=== PATIENT | female | born 1960 | race Caucasian/White ===

== ENCOUNTER 2020-08-12 19:47 | Emergency (ER) | payer BC, OTHER ==
--- NOTE | 2020-08-12 19:59 | EDM.PDOC ---
ED HPI GENERAL MEDICAL PROBLEM - General Chief Complaint: Allergic Reaction Time Seen by Provider: 08/12/20 19:51 Source of Information: Reports: Patient, EMS History Limitations: Reports: No Limitations - History of Present Illness INITIAL COMMENTS - FREE TEXT/NARRATIVE: Patient presents with allergic reaction. She has no idea what caused it. At about 5:30 she started to itch on her abdomen and anterior thighs. Then she noticed hives developing there. 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 At 6:00 she took Benadryl 50 mg po. She noticed a bit of shortness of breath but no swelling or tightness in her mouth or throat. She did get lightheaded and felt like she would faint so sat down. EMS gave her epipen dose, another dose of Benadryl 25 mg IV and started IV saline. EMS reports a low of 90 SBP briefly but was soon up to 109. - Related Data Allergies Allergy/AdvReac Type Severity Reaction Status Date / Time No Known Allergies Allergy Verified 08/12/20 19:48 Home Meds: Home Meds Cholecalciferol (Vitamin D3) [Vitamin D3] 400 mg PO DAILY 05/06/15 [History] Metoprolol Succinate [Toprol XL 100mg] 100 mg PO DAILY 05/06/15 [History] Sertraline [Zoloft] 1 tab PO DAILY 05/06/15 [History] glipiZIDE [Glipizide ER] 10 mg PO BID 05/06/15 [History] metFORMIN [Glucophage] 1,000 mg PO BID 05/06/15 [History] Aspirin 325 mg PO DAILY 04/25/20 [History] Dulaglutide [Trulicity] 0.75 mg SQ WEEKLY 04/25/20 [History] Empagliflozin [Jardiance] 25 mg PO DAILY 04/25/20 [History] Losartan [Cozaar] 25 mg PO DAILY 04/25/20 [History] Simvastatin 40 mg PO BEDTIME 04/25/20 [History] traZODone HCl [Trazodone HCl] 100 mg PO BEDTIME 04/25/20 [History] Past Medical History Cardiovascular History: Reports: High Cholesterol, Hypertension, Other (See Below) Other Cardiovascular History: Ripli-Cnvkqudmo-Vqeaa syndrome Respiratory History: Reports: None Gastrointestinal History: Reports: Colon Polyp, Other (See Below) Other Gastrointestinal History: incisional hernia, heme positive stool, fm hx colon ca, Genitourinary History: Reports: Renal Calculus, Other (See Below) Other Genitourinary History: mixed incontinence, nephrolithiasis, proteinuria, BUSINESS MANAGEMENT INTERN History: Reports: Other (See Below) Other BUSINESS MANAGEMENT INTERN History: Absence of menstruation Musculoskeletal History: Reports: Osteoarthritis, Other (See Below) Other Musculoskeletal History: shoulder pain, chronic pain Neurological History: Psychiatric History: Reports: Anxiety, Depression, Other (See Below) Other Psychiatric History: insomnia Endocrine/Metabolic History: Reports: Diabetes, Type II, Obesity/BMI 30+ Hematologic History: Reports: None Immunologic History: Reports: None Oncologic (Cancer) History: Reports: None Dermatologic History: Reports: Other (See Below) Other Dermatologic History: lipoma - Past Surgical History HEENT Surgical History: Reports: Adenoidectomy, LASIK, Oral Surgery, Tonsillectomy Cardiovascular Surgical History: Reports: Other (See Below) Other Cardiovascular Surgeries/Procedures: cardiac ablation GI Surgical History: Reports: Cholecystectomy, Colonoscopy Female Surgical History: Reports: Lithotripsy/ESWL, Other (See Below) Other Female Surgeries/Procedures: bladder sx - stretched; colposcopy; lithotripsy; polypectomy Other Neurological Surgeries/Procedures: spine surgery Musculoskeletal Surgical History: Reports: Arthroscopic Procedure, Shoulder Surgery Social & Family History - Caffeine Use Caffeine Use: Reports: None ED ROS ALLERGIC REACTION - Review of Systems Review Of Systems: See Below Constitutional: Denies: Fever, Chills, Malaise, Weakness HEENT: Denies: Throat Pain, Throat Swelling Respiratory: Reports: Shortness of Breath (fairly mild in her lungs). Denies: Cough Cardiovascular: Reports: Lightheadedness. Denies: Chest Pain, Syncope Endocrine: Reports: High Glucose (is diabetic) GI/Abdominal: Denies: Abdominal Pain, Vomiting : Reports: No Symptoms Musculoskeletal: Reports: No Symptoms Skin: Reports: Pruritis, Erythema, Urticaria. 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 No: Nasal Swelling Throat/Mouth: Normal Inspection, Normal Lips, Normal Teeth, Normal Gums, Normal Oropharynx, Normal Voice, No Airway Compromise Head: Atraumatic, Normocephalic Neck: Normal Inspection, Supple, Full Range of Motion Respiratory/Chest: No Respiratory Distress, Lungs Clear, Normal Breath Sounds, No Accessory Muscle Use Cardiovascular: Regular Rate, Rhythm, No Edema, No Gallop, No Murmur GI/Abdominal: Normal Bowel Sounds, Soft, Non-Tender, No Organomegaly, No Distention Back Exam: Normal Inspection, Full Range of Motion Extremities: Normal Inspection, Normal Range of Motion Neurological: Alert, Oriented, Normal Cognition, No Motor/Sensory Deficits Psychiatric: Normal Affect, Normal Mood Skin Exam: Warm, Dry, Intact, Erythema (with urticarial patches across anterior and lateral abdomen; this has significantly improved since treatment with Benadryl and epinephrine.) Course - Vital Signs Last Recorded V/S: Last Vital Signs Temp 97.4 F 08/12/20 19:48 Pulse 72 08/12/20 21:00 Resp 20 08/12/20 21:00 BP 107/60 08/12/20 21:00 Pulse Ox 96 08/12/20 21:00 - Orders/Labs/Meds Orders: Active Orders 24 hr Category Date Time Status EPINEPHrine [Epipen] Med 08/12/20 21:49 Once 0.3 mg IM ONETIME ONE Sodium Chloride 0.9% @ 999 MLS/HR (1000ml) Med 08/12/20 21:08 Ordered Sodium Chloride 0.9% [Normal Saline] 1,000 ml IV .BOLUS Medication Orders Sodium Chloride (Normal Saline) 1,000 mls @ 999 mls/hr IV .BOLUS ONE Stop: 08/12/20 22:08 Meds: Medications Generic Name Dose Route Start Last Admin Trade Name Freq PRN Reason Stop Dose Admin Sodium Chloride 1,000 mls @ 999 mls/hr 08/12/20 21:08 Normal Saline IV 08/12/20 22:08 .BOLUS ONE Discontinued Medications Generic Name Dose Route Start Last Admin Trade Name Freq PRN Reason Stop Dose Admin Epinephrine HCl Confirm 08/12/20 20:56 Epinephrine 0.3 Mg/0.3 Ml Pen Autoinjector Administered 08/12/20 20:57 Dose 0.3 mg .ROUTE .STK-MED ONE - Re-Assessments/Exams Free Text/Narrative Re-Assessment/Exam: 08/12/20 21:08 Patient is doing very well with nearly complete resolution of all symptoms. Itch and hives are gone. A liter of NS is in. Blood pressure was up to 133/74 initially but down to 107/60 now so will give another bolus. 08/12/20 21:32 We provided an epi-pen from ER for patient to take home at discharge and instructed her in its use. A Rx for two additional pens was given also. Patient is stable. Departure - Departure Time of Disposition: 21:50 Disposition: Home, Self-Care 01 Condition: Good Clinical Impression: Urticaria, Pruritus Allergic reaction Qualifiers: Encounter type: initial encounter Qualified Code(s): T78.40XA - Allergy, unspecified, initial encounter - Discharge Information Instructions: Anaphylactic Reaction, Adult, Hives, [id number] Forms: ED Department Discharge Additional Instructions: Drink 8 cups of water daily. Return to ER [facility] if any trouble breathing, throat swelling or other significant worsening. Fill the prescription for two epi-pens tomorrow. Use the one we gave you at the hospital if any anaphylaxis symptoms return. Follow up with your PCP for further evaluation of this reaction and possible allergy treatment. Sepsis Event Note (ED) - Evaluation Sepsis Screening Result: No Definite Risk - Focused Exam Vital Signs: Vital Signs Temp Pulse Resp BP Pulse Ox 08/12/20 21:00 72 20 107/60 96 08/12/20 20:37 74 16 108/47 L 96 08/12/20 19:48 97.4 F 71 18 134/77 97 - My Orders Last 24 Hours: My Active Orders 08/12/20 21:08 Sodium Chloride 0.9% @ 999 MLS/HR (1000ml) Sodium Chloride 0.9% [Normal Saline] 1,000 ml IV .BOLUS 08/12/20 21:49 EPINEPHrine [Epipen] 0.3 mg IM ONETIME ONE - Assessment/Plan Last 24 Hours: My Active Orders 08/12/20 21:08 Sodium Chloride 0.9% @ 999 MLS/HR (1000ml) Sodium Chloride 0.9% [Normal Saline] 1,000 ml IV .BOLUS 08/12/20 21:49 EPINEPHrine [Epipen] 0.3 mg IM ONETIME ONE
[2020-08-12] MEDS ORDERED: EPINEPHrine 0.3 MG/0.3 ML Pen Autoinjector ONE (20:56)
[2020-08-12] MEDS ORDERED: Sodium Chloride 0.9% 1,000 ML IV ONE (21:08)
[2020-08-12] MEDS ORDERED: EPINEPHrine 0.3 MG/0.3 ML Pen Autoinjector IM ONE (21:49)
[2020-08-12 21:54] VITALS: BP 118/62; PULSE 79
== END 2020-08-12 22:00 | disposition home or self-care (01) ==
LOC: KA.ED 19:47
DX: L50.0 Allergic urticaria (principal); L29.9 Pruritus, unspecified; E78.00 Pure hypercholesterolemia, unspecified; I10 Essential (primary) hypertension; M19.90 Unspecified osteoarthritis, unspecified site; E11.9 Type 2 diabetes mellitus without complications; E66.9 Obesity, unspecified; Z68.32 Body mass index [BMI] 32.0-32.9, adult; Z79.82 Long term (current) use of aspirin; Z79.84 Long term (current) use of oral hypoglycemic drugs; Z79.899 Other long term (current) drug therapy
CPT/HCPCS: 96372; 99284; A9270-GY; J7030